=== PATIENT | male | born 1935 | race Hispanic/Latino ===

== ENCOUNTER 2017-01-30 11:43 | Outpatient (CLI) | payer MEDICARE, OTHER | END 2017-01-30 11:44 | disposition home or self-care (01) | LOC: LAB 11:43 | PROVIDERS: ATTEND Specialist | DX: R26.9 Unspecified abnormalities of gait and mobility (principal) | CPT/HCPCS: 36415; 82550; 84443 ==

== ENCOUNTER 2017-05-08 14:00 | Outpatient (CLI) | payer MEDICARE, OTHER ==
--- NOTE | 2017-05-09 18:37 | Magnetic Resonance Report ---
MR scan of the cranium was performed with and without contrast. Pulse sequences included: 1. T1 weighted sagittal and axial images without contrast and T1 axial images with contrast, and sagittal and coronal reformatted images with contrast 2. T2 weighted axial and coronal images 3. FLAIR axial images 4. Diffusion-weighted axial images 5. Apparent diffusion coefficient images 6. gradient echo axial images Views of the posterior fossa showed a normal craniocervical junction. Cerebellar pontine angles were normal with normal seventh-eighth nerve complexes. Brainstem and cerebellum were normal. The ventricular system showed no dilatation or distortion. Images of the hemispheres showed white matter changes in the periventricular white matter consistent with araiosis. Sinuses showed a right maxillary sinus mucus retention cyst. Pituitary, flow voids in the [place] of [place], orbits, and basal ganglia were normal. There are no abnormal areas of enhancement with contrast. Impression: Abnormal MR scan of the cranium with and without contrast 1. right maxillary sinus mucus retentions cyst 2. white matter araiosis
== END 2017-05-08 14:01 | disposition home or self-care (01) ==
LOC: SPVIMAG 14:00
PROVIDERS: ATTEND Specialist
DX: G50.8 Other disorders of trigeminal nerve (principal); K11.6 Mucocele of salivary gland
CPT/HCPCS: 70553; A9577